=== PATIENT | male | born 1980 | race Caucasian/White ===

== ENCOUNTER 2020-10-26 14:14 | Emergency (ER) | payer BC ==
[~2020-10-26] VITALS: Ht 167.6 cm; Wt 100.0 kg
[2020-10-26 14:29] VITALS: BP 144/79
--- NOTE | 2020-10-26 16:11 | NUR ---
[employer] CONSULTANT SELLING: PT TO ROOM FROM LOBBY
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
--- NOTE | 2020-10-26 17:05 | NUR ---
PT REC/VD DISCHARGE INSTRUCTIONS AND EDUCATION. PT HAD NO FURTHER QUESTIONS. PT AMBULATED TO DC AREA, STEADY GAIT.
== END 2020-10-26 17:08 | disposition home or self-care (01) ==
LOC: ED 16:48
DX: S23.3XXA Sprain of ligaments of thoracic spine, initial encounter (principal); S33.5XXA Sprain of ligaments of lumbar spine, initial encounter; M54.2 Cervicalgia; Z87.891 Personal history of nicotine dependence; Z90.49 Acquired absence of other specified parts of digestive tract; V49.40XA Driver injured in collision with unspecified motor vehicles in traffic accident, initial encounter; Y93.89 Activity, other specified; Y92.488 Other paved roadways as the place of occurrence of the external cause; Y99.8 Other external cause status
CPT/HCPCS: 72072; 72110; 99284

== ENCOUNTER 2021-01-20 19:39 | Emergency (ER) | payer BC, OTHER ==
[~2021-01-20] VITALS: Ht 165.1 cm; Wt 100.0 kg
[2021-01-20 20:08] VITALS: BP 136/77
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
== END 2021-01-20 20:19 | disposition home or self-care (01) ==
LOC: ED 19:57
DX: H60.91 Unspecified otitis externa, right ear (principal)
CPT/HCPCS: 99283

== ENCOUNTER 2021-05-09 09:29 | Emergency (ER) | payer OTHER ==
[~2021-05-09] VITALS: Ht 162.6 cm; Wt 99.1 kg
[2021-05-09 09:30] VITALS: BP 136/80
[2021-05-09] MEDS ORDERED: KETOROLAC 30 MG/1 ML ONE (09:44)
[2021-05-09] MEDS ORDERED: KETOROLAC 30 MG/1 ML IM ONE (10:00)
== END 2021-05-09 12:06 | disposition home or self-care (01) ==
LOC: ED 11:03
DX: M77.11 Lateral epicondylitis, right elbow (principal)
CPT/HCPCS: 73080; 96372; 99283; J1885